=== PATIENT | female | born 1980 | race Hispanic/Latino ===

== ENCOUNTER 2017-11-21 06:57 | Day surgery (SDC) | payer OTHER ==
[~2017-11-21] VITALS: Ht 160 cm; Wt 63.5 kg
[~2017-11-21 06:57] MED LIST: LEVO112T7 PO; METH25VI11 PO; SODIUM CHLORIDE 0.9% 1000ML 1,000 ML IV ONE
[2017-11-21 07:58] VITALS: BP 120/71
[2017-11-21] MEDS ORDERED: PROPOFOL 1000 MG/100 ML 100 ML IV ONE (09:53)
[2017-11-21 10:20] VITALS: BP 123/65
[2017-11-21 10:25] VITALS: BP 127/73
[2017-11-21 10:30] VITALS: BP 114/81
[2017-11-21 10:35] VITALS: BP 111/72
== END 2017-11-21 10:55 | disposition home or self-care (01) ==
LOC: ENDO 06:57 → DAH 06:57 → ENDO 10:55
PROVIDERS: ATTEND Internal Medicine
DX: K64.0 First degree hemorrhoids (principal); K29.50 Unspecified chronic gastritis without bleeding; K57.30 Diverticulosis of large intestine without perforation or abscess without bleeding; K31.89 Other diseases of stomach and duodenum; J45.909 Unspecified asthma, uncomplicated; Z79.899 Other long term (current) drug therapy; E03.8 Other specified hypothyroidism
CPT/HCPCS: 43239; 45378; 81025; A4606; J2704; J7030